=== PATIENT | male | born 2000 | race Caucasian/White ===

== ENCOUNTER 2022-11-01 11:12 | Emergency (ER) | payer OTHER ==
[~2022-11-01] VITALS: Ht 157.5 cm; Wt 59.1 kg
[2022-11-01 11:30] VITALS: TEMP 99.5
[2022-11-01 13:24] VITALS: BP 127/78; PULSE 81
== END 2022-11-01 13:25 | disposition home or self-care (01) ==
LOC: COL.ER 11:12
DX: U07.1 COVID-19 (principal); R50.9 Fever, unspecified; R19.7 Diarrhea, unspecified; M54.9 Dorsalgia, unspecified; F17.200 Nicotine dependence, unspecified, uncomplicated; Z28.310 Unvaccinated for COVID-19
CPT/HCPCS: J1885; J7030